=== PATIENT | male | born 1980 | race Hispanic/Latino ===

== ENCOUNTER 2018-07-09 21:19 | Emergency (ER) | payer MEDICAID ==
[2018-07-09 22:35] VITALS: RESP 18; TEMP 98.8; O2SAT 100; BMI 25.4
--- NOTE | 2018-07-09 22:36 | ED PDOC ---
Arrival/HPI - General Chief Complaint: Upper Extremity Problem/Injury Time Seen by Provider: 07/09/18 21:31 Historian: Patient - History of Present Illness Narrative History of Present Illness (Text): 07/09/18 22:37 37 year old male, whose past medical history includes seizure disorder and [place], presents to the emergency department with a bump on his left arm, found today. Patient states it is painful to the touch. Patient states he is concerned because of its blue color. Patient informs he is unsure when it happened, and did not have any trauma/ injury to the arm, but found it shortly before coming for evaluation. Patient denies any fevers, chills, headache, dizziness, chest pain, shortness of breath, cough, abdominal pain, nausea, vomiting, diarrhea, back pain, neck pain, urinary/bowel changes, or any other complaint. Time/Duration: Prior to Arrival Symptom Course: Unchanged Context: Home Past Medical History - Provider Review Nursing Documentation Reviewed: Yes Family/Social History - Physician Review Nursing Documentation Reviewed: Yes Family/Social History: No Known Family HX Allergies/Home Meds Allergies/Adverse Reactions: Allergies No Known Allergies Allergy (Verified 07/09/18 22:27) Home Medications: Home Meds Medication Instructions Recorded Confirmed Atorvastatin [Lipitor] 40 mg PO DAILY 07/09/18 07/09/18 Clopidogrel [Plavix] 75 mg PO DAILY 07/09/18 07/09/18 levETIRAcetam [Keppra] 50 mg PO DAILY 07/09/18 07/09/18 Review of Systems - Physician Review All systems were reviewed & negative as marked: Yes - Review of Systems Constitutional: absent: Fevers, Night Sweats Respiratory: absent: SOB, Cough Cardiovascular: absent: Chest Pain Gastrointestinal: absent: Abdominal Pain, Diarrhea, Nausea, Vomiting Genitourinary Male: absent: Urinary Output Changes Musculoskeletal: absent: Back Pain, Neck Pain Neurological: absent: Headache, Dizziness Physical Exam Vital Signs Reviewed: Yes Vital Signs Temp Pulse Resp BP Pulse Ox 07/09/18 22:27 98.8 F 66 18 132/72 100 Temperature: Afebrile Blood Pressure: Normal Pulse: Regular Respiratory Rate: Normal Appearance: Positive for: Well-Appearing, Non-Toxic, Comfortable Pain Distress: None Mental Status: Positive for: Alert and Oriented X 3 - Systems Exam Head: Present: Atraumatic, Normocephalic Pupils: Present: PERRL Extroacular Muscles: Present: EOMI Conjunctiva: Present: Normal Mouth: Present: Moist Mucous Membranes Neck: Present: Normal Range of Motion Respiratory/Chest: Present: Clear to Auscultation, Good Air Exchange. No: Respiratory Distress, Accessory Muscle Use Cardiovascular: Present: Regular Rate and Rhythm, Normal S1, S2. No: Murmurs Abdomen: No: Tenderness, Distention, Peritoneal Signs Back: Present: Normal Inspection Upper Extremity: Present: Tenderness (slightly tender to palpation (area on left forearm)), Other (No fluctuance; Induration). No: Erythema Lower Extremity: Present: Normal Inspection. No: Edema Neurological: Present: Speech Normal Skin: Present: Warm, Dry, Normal Color. No: Rashes Psychiatric: Present: Alert, Oriented x 3, Normal Insight, Normal Concentration - Scribe Statement The provider has reviewed the documentation as recorded by the Scribe Carlos Ferrari Provider Scribe Attestation: All medical record entries made by the Scribe were at my direction and personally dictated by me. I have reviewed the chart and agree that the record accurately reflects my personal performance of the history, physical exam, medical decision making, and the department course for this patient. I have also personally directed, reviewed, and agree with the discharge instructions and disposition. Disposition/Present on Arrival - Present on Arrival Any Indicators Present on Arrival: No History of DVT/PE: No History of Uncontrolled Diabetes: No Urinary Catheter: No History of Decub. Ulcer: No History Surgical Site Infection Following: None - Disposition Have Diagnosis and Disposition been Completed?: Yes Diagnosis: Hematoma, Contusion Disposition: HOME/ ROUTINE Disposition Time: 22:35 Patient Plan: Discharge Patient Problems: Current Active Problems Problem Status Onset Hematoma Acute Contusion Acute Condition: STABLE Discharge Instructions (ExitCare): Taking Care of Bruises, Contusion (DC) Print Language: SPANISH Additional Instructions: All medical record entries made by the Scribe were at my direction and personally dictated by me. I have reviewed the chart and agree that the record accurately reflects my personal performance of the history, physical exam, medical decision making, and the department course for this patient. I have also personally directed, reviewed, and agree with the discharge instructions and disposition. Please apply warm compresses to area as needed. Referrals: Fanny Salvador MD [Medical Doctor] - Follow up with primary [facility] [place] - Follow up with primary Forms: [employer] (Kazakh)
[2018-07-09 22:59] VITALS: BP 112/62; PULSE 72
== END 2018-07-09 22:49 | disposition home or self-care (01) ==
LOC: ED 21:19
DX: S50.12XA Contusion of left forearm, initial encounter (principal); X58.XXXA Exposure to other specified factors, initial encounter; G40.909 Epilepsy, unspecified, not intractable, without status epilepticus; I25.2 Old myocardial infarction

== ENCOUNTER 2018-09-22 09:33 | Outpatient (CLI) | payer MEDICAID | END 2018-09-22 09:34 | disposition home or self-care (01) | LOC: LAB 09:33 ==